=== PATIENT | male | born 1955 | race Caucasian/White ===

== ENCOUNTER 2018-11-23 12:48 | Emergency (ER) | payer MEDICARE ==
[~2018-11-23] VITALS: Ht 182.9 cm; Wt 100.2 kg
== END 2018-11-23 13:48 | disposition home or self-care (01) ==
LOC: ER 12:48
DX: S92.351A Displaced fracture of fifth metatarsal bone, right foot, initial encounter for closed fracture (principal); W23.0XXA Caught, crushed, jammed, or pinched between moving objects, initial encounter
CPT/HCPCS: 73630; 99283-25

== ENCOUNTER → 2024-06-18 | Outpatient (CLI) | payer MEDICARE ==
[2024-06-18 16:18] LABS: BASOPHILS ABSOLUTE AUTO 0.07 K/mm3 (0.00-0.23); BASOPHILS PERCENT AUTO 1 % (0-2); EOSINOPHILS ABSOLUTE AUTO 0.47 K/mm3 (0.00-0.68); EOSINOPHILS PERCENT AUTO 6 % (0-6); Hematocrit 38.9 % (37.0-53.0); Hemoglobin 13.6 g/dL (13.5-17.5); IMMATURE GRAN ABSOLUTE AUTO 0.01 K/mm3 (0.00-0.10); IMMATURE GRAN PERCENT AUTO 0 % (0-1); LYMPHOCYTES ABSOLUTE AUTO 1.73 K/mm3 (0.84-5.20); LYMPHOCYTES PERCENT AUTO 22 % (21-46); MONOCYTES ABSOLUTE AUTO 0.94 K/mm3 (0.16-1.47); MONOCYTES PERCENT AUTO 12 % (4-13); Mean Corpuscular HGB 33.7 pg (26.0-34.0); Mean Corpuscular Volume 96 fL (80-100); Mean Platelet Volume 10.2 fL (9.1-12.4); NEUTROPHILS ABSOLUTE AUTO 4.66 K/mm3 (1.96-9.15); NEUTROPHILS PERCENT AUTO 59 % (41-73); Platelet Count 335 K/mm3 (150-400); RDW Coefficient Variation 14.1 % (11.7-14.2); RDW Standard Deviation 49.2 fL (35.1-46.3); Red Blood Cell Count 4.04 M/mm3 (4.30-5.90); White Blood Cell Count 7.88 K/mm3 (4.00-11.30)
[2024-06-18 20:23] LABS: Chloride, Blood 110 mmol/L (98-108); Potassium, Blood 4.3 mmol/L (3.5-5.5); Sodium, Blood 140 mmol/L (136-145)
[2024-06-18 20:38] LABS: Anion Gap 8 mmol/L (3-11)
[2024-06-18 20:53] LABS: Alanine Aminotransfer (ALT/SGP 23 U/L (12-78); Albumin, Blood 3.8 g/dL (3.4-5.0); Albumin/Globulin Ratio 1.1 (0.8-1.8); Alk Phos 76 U/L (50-136); Aspartate Aminotrans (AST/SGOT 19 U/L (12-37); Bilirubin, Total 0.5 mg/dL (0.1-1.0); Blood Urea Nitrogen 12 mg/dL (8-24); Bun/Creatinine Ratio 15.6 (12.0-20.0); CO2, Blood 26 mmol/L (21-32); Calcium, Blood 9.4 mg/dL (8.5-10.1); Cholesterol 214 mg/dL (50-200); Creatinine, Blood 0.77 mg/dL (0.60-1.20); Globulin, Blood 3.5 g/dL (2.2-4.0); Glomerular Filtration Rate 96 (60-); Glucose, Blood 105 mg/dL (70-99); HDL Cholesterol 72 mg/dL (>39); LDL/HDL RATIO 1.7; Low Density Lipoprotein Chol 122 mg/dL (0-110); Total Protein, Blood 7.3 g/dL (6.4-8.2); Triglycerides 102 mg/dL (30-160); Very Low Density Lipoprot Chol 20 mg/dL (6-32)
== END ==
LOC: LAB 15:36 → LAB SHORT 15:36
PROVIDERS: Family Medicine
DX: I10 Essential (primary) hypertension (principal); E78.2 Mixed hyperlipidemia
CPT/HCPCS: 80053; 80061; 85025

== ENCOUNTER 2025-03-20 13:02 | Observation (INO) | payer MEDICARE ==
[~2025-03-20] VITALS: Ht 180.3 cm; Wt 86.4 kg
[2025-03-20] MEDS ORDERED: NS 500 ML IV SCH (13:45)
[2025-03-20] MEDS ORDERED: Ketorolac Tromethamine 30mg Vial IV ONE (14:35)
[2025-03-20] MEDS ORDERED: Lidocaine 2% Viscous Soln 15 ML UDC PO ONE (14:35)
[2025-03-20 15:01] LABS: Influenza A, PCR NEGATIVE (NEGATIVE); Influenza B, PCR NEGATIVE (NEGATIVE); Resp Syncytial Virus, PCR NEGATIVE (NEGATIVE); SARS-Cov-2 (COVID-19) PCR, MMC NEGATIVE (NEGATIVE)
[2025-03-20 17:03] LABS: BASOPHILS ABSOLUTE AUTO 0.08 K/mm3 (0.00-0.23); BASOPHILS PERCENT AUTO 1 % (0-2); EOSINOPHILS ABSOLUTE AUTO 0.07 K/mm3 (0.00-0.68); EOSINOPHILS PERCENT AUTO 1 % (0-6); Hematocrit 33.1 % (37.0-53.0); Hemoglobin 11.7 g/dL (13.5-17.5); IMMATURE GRAN ABSOLUTE AUTO 0.07 K/mm3 (0.00-0.10); IMMATURE GRAN PERCENT AUTO 1 % (0-1); LYMPHOCYTES ABSOLUTE AUTO 1.52 K/mm3 (0.84-5.20); LYMPHOCYTES PERCENT AUTO 13 % (21-46); MONOCYTES ABSOLUTE AUTO 1.72 K/mm3 (0.16-1.47); MONOCYTES PERCENT AUTO 15 % (4-13); Mean Corpuscular HGB Conc 35.3 g/dL (31.5-36.5); Mean Corpuscular Volume 93 fL (80-100); NEUTROPHILS ABSOLUTE AUTO 7.98 K/mm3 (1.96-9.15); NEUTROPHILS PERCENT AUTO 70 % (41-73); NRBC ABSOLUTE 0.00 K/mm3 (0.00-0.02); NRBC Auto 0.0 /100 WBC (0.0-0.2); Platelet Count 346 K/mm3 (150-400); RDW Coefficient Variation 12.9 % (11.7-14.2); RDW Standard Deviation 43.8 fL (35.1-46.3)
[2025-03-20] MEDS ORDERED: Ondansetron HCl 2 MG / ML 2ML Vial IV PRN (18:05)
[2025-03-20] MEDS ORDERED: NS 1,000 ML IV SCH (19:00)
[2025-03-20 19:37] VITALS: BP 127/86
[2025-03-20] MEDS ORDERED: METTREX2.5 PO (19:54)
[2025-03-20] MEDS ORDERED: Tessalon200 MG PO (19:56)
[2025-03-20] MEDS ORDERED: TELM40 PO (19:58)
[2025-03-20] MEDS ORDERED: FOLI1 PO (19:59)
[2025-03-20] MEDS ORDERED: CELE200 PO (20:00)
[2025-03-20 23:34] VITALS: BP 154/90
--- NOTE | 2025-03-21 00:12 | NUR ---
PT VERY AGITATED AT THIS NURSE BECAUSE OF IV ALARM, EXPLAINED TO PT ON SEVERAL OCCASIONS WHY IT WAS ALARMING, AND HE STILL FEELS ITS MY FAULT EVEN THOUGH PT KEEPS BENDING HIS ARM, SPLINTED ARM WITH TOWEL.
[2025-03-21] MEDS ORDERED: Guaifenesin/Dextromethorphan Syrup 5 ML UDC PO PRN (02:05)
--- NOTE | 2025-03-21 04:27 | NUR ---
PT A&O X4, VS WNL WITH EXCEPTION OF INCREASED BP D/T MD HOLDING MED. PT WITH INCREASED PO INTAKE, AND UOP WNL. PT WITH HACKING COUGH WHICH MAKES HIM VOMIT AT TIMES, NEW ORDER FOR COUGH SYRUP. ADMITTED FROM ED WITH UNKNOWN REASON FOR SYNCOPY AND DYSPENIA. O2 AT 2L. USES CALL SYSTEM APPROPRIATELY. PLAN FOR ECHO AND PULMONARY CONSULT TODAY.
[2025-03-21 05:35] LABS: BASOPHILS ABSOLUTE AUTO 0.07 K/mm3 (0.00-0.23); BASOPHILS PERCENT AUTO 1 % (0-2); EOSINOPHILS ABSOLUTE AUTO 0.26 K/mm3 (0.00-0.68); EOSINOPHILS PERCENT AUTO 2 % (0-6); Hematocrit 34.7 % (37.0-53.0); Hemoglobin 12.4 g/dL (13.5-17.5); IMMATURE GRAN ABSOLUTE AUTO 0.05 K/mm3 (0.00-0.10); IMMATURE GRAN PERCENT AUTO 0 % (0-1); LYMPHOCYTES ABSOLUTE AUTO 1.13 K/mm3 (0.84-5.20); LYMPHOCYTES PERCENT AUTO 10 % (21-46); MONOCYTES ABSOLUTE AUTO 1.51 K/mm3 (0.16-1.47); MONOCYTES PERCENT AUTO 13 % (4-13); Mean Corpuscular HGB Conc 35.7 g/dL (31.5-36.5); Mean Corpuscular Volume 92 fL (80-100); NEUTROPHILS ABSOLUTE AUTO 8.22 K/mm3 (1.96-9.15); NEUTROPHILS PERCENT AUTO 73 % (41-73); NRBC ABSOLUTE 0.00 K/mm3 (0.00-0.02); NRBC Auto 0.0 /100 WBC (0.0-0.2); Platelet Count 307 K/mm3 (150-400); RDW Coefficient Variation 12.9 % (11.7-14.2); RDW Standard Deviation 42.5 fL (35.1-46.3)
[2025-03-21 07:33] VITALS: BP 141/96
[2025-03-21] MEDS ORDERED: Enoxaparin 40 MG/0.4 ML SYR SC SCH (09:00)
[2025-03-21 11:45] VITALS: BP 138/90
[2025-03-21 15:37] LABS: Campylobacter Sp Not Detected (NOT DETECT); E. Coli O157 Not Detected (NOT DETECT); Enteroaggregative E. coli-EAEC Not Detected (NOT DETECT); Enteropathogenic E. coli-EPEC Not Detected (NOT DETECT); Enterotoxigenic E. coli-ETEC Not Detected (NOT DETECT); Salmonella Sp Not Detected (NOT DETECT); Shiga Toxin-prod E. coli-STEC Not Detected (NOT DETECT); Shigella/Enteroin E. coli-EIEC Not Detected (NOT DETECT); Vibrio Sp Not Detected (NOT DETECT)
[2025-03-21 16:07] VITALS: BP 148/86
--- NOTE | 2025-03-21 17:12 | NUR ---
SHIFT SUMMARY PT AOX4, INDEPENDENT IN THE ROOM. REMAINS ON NC, DESATS WITH AMBULATION. CALLS AND MAKES HIS NEEDS KNOWN. SOME DIARRHEA TODAY, GI PANEL SENT, SEE CHART FOR RESULTS. PT REPOSITIONS SELF IN BED, NO EVENTS PER TELE. SLEEP MED ORDERED PER THE EMAR AT PT'S REQUEST. PLAN IS FOR THE PT TO DC TOMORROW WITH A CLARA PATCH. CALL LIGHT WITHIN REACH, BED LOCKED AND IN THE LOWEST POSITION. WILL REPORT TO ONCOMING NURSE.
[2025-03-21 19:29] VITALS: BP 157/100
--- NOTE | 2025-03-21 19:52 | NUR ---
PT WITH MANY CONCERNS ABOUT WHAT IS IN REPORTS THAT ARE DICTATED AND IN CHART, FOR EXAMPLE CXR DONE ON 03/18 STATES HE WAS ON AMIODORONE AND IN FACT HE IS AND NEVER HAS BEEN ON AMIODORONE. PT ALSO CONCERNED ABOUT BEING FINE AND THEN WITHIN 3 DAYS WAS ILL WITH SIGNIFICANT COUGH, AND WEAKNESS. PT ALSO CONCERNED WITH NIGHT TIME SLEEP PATTERN AND INTENSES COUGHING. THIS NURSE CONVEYED THIS TO MD AND WAS DECIDED THAT WE WOULD TRY ATIVAN FOR COUGH, AND PT REQUESTED TYLENOL PM, WHICH HOSPITAL DOES NOT PROVIDED BUT BENEDRYL WAS ORDERED. WILL CONTINUE TO CONVEY PLAN TO PT, AND ENCOURAGED HIM TO REQUEST DETAILED INFORMATION FROM MD ON ROUNDS TOMORROW.
[2025-03-21 23:59] VITALS: BP 137/84
--- NOTE | 2025-03-22 05:15 | NUR ---
PT A&O X4, VS WNL, UOP WNL, PO INTAKE GOOD. TELE NSR. USES CALL SYSTEM INDEPENTLY. O2 INCREASED TO 3L D/T DECREASED SATS TO 85%. PT WITH CRACKLES IN LL'S. SLEPT BETWEEN MEDICATION. PT MEDICATED WITH ATIVAN FOR COUGH AND THIS WAS VERY HELPFUL, PT STATES HE FEELS BETTER THIS AM. UNSURE WHAT PLAN IS FOR TODAY.
[2025-03-22 05:19] VITALS: BP 109/50
[2025-03-22 05:40] LABS: BASOPHILS ABSOLUTE AUTO 0.10 K/mm3 (0.00-0.23); BASOPHILS PERCENT AUTO 1 % (0-2); EOSINOPHILS ABSOLUTE AUTO 0.28 K/mm3 (0.00-0.68); EOSINOPHILS PERCENT AUTO 2 % (0-6); Hematocrit 34.3 % (37.0-53.0); Hemoglobin 12.0 g/dL (13.5-17.5); IMMATURE GRAN ABSOLUTE AUTO 0.07 K/mm3 (0.00-0.10); IMMATURE GRAN PERCENT AUTO 1 % (0-1); LYMPHOCYTES ABSOLUTE AUTO 2.07 K/mm3 (0.84-5.20); LYMPHOCYTES PERCENT AUTO 18 % (21-46); MONOCYTES ABSOLUTE AUTO 1.89 K/mm3 (0.16-1.47); MONOCYTES PERCENT AUTO 16 % (4-13); Mean Corpuscular HGB Conc 35.0 g/dL (31.5-36.5); Mean Corpuscular Volume 95 fL (80-100); NEUTROPHILS ABSOLUTE AUTO 7.23 K/mm3 (1.96-9.15); NEUTROPHILS PERCENT AUTO 62 % (41-73); NRBC ABSOLUTE 0.00 K/mm3 (0.00-0.02); NRBC Auto 0.0 /100 WBC (0.0-0.2); Platelet Count 339 K/mm3 (150-400); RDW Coefficient Variation 12.9 % (11.7-14.2); RDW Standard Deviation 44.2 fL (35.1-46.3)
[2025-03-22 06:12] LABS: Anion Gap 9.0 mmol/L (3-11); Blood Urea Nitrogen 10.0 mg/dL (8-24); CO2, Blood 26.0 mmol/L (21-32); Calcium, Blood 8.5 mg/dL (8.5-10.1); Chloride, Blood 99.0 mmol/L (98-108); Creatinine, Blood 0.77 mg/dL (0.60-1.20); Glucose, Blood 103.0 mg/dL (70-99); Potassium, Blood 3.4 mmol/L (3.5-5.5); Sodium, Blood 131.0 mmol/L (136-145)
[2025-03-22 07:18] VITALS: BP 116/84
[2025-03-22 11:07] VITALS: BP 127/81
[2025-03-22] MEDS ORDERED: Ativan1 MG PO (13:51)
--- NOTE | 2025-03-22 14:20 | NUR ---
DISCHARGE NOTE- CALLED FOR HARD COPY SCRIPT FOR PO ATIVAN. IV AND TELE DC'D PRIOR TO DISCHARGE. HOME O2 EVAL COMPLETED PRIOR TO DC. PORTABLE O2 TANK PROVIDED BY [facility]. CALLED DR TO CLARIFY THE NEED FOR ZIO PATCH ORDER. CALLED [facility] AND THEY CAME AND PLACED ZIO PATCH. PT ESCORTED OUT VIA WC BY THE TONGUE STITCHER. NO S&S OF DISTRESS NOTED AT THE TIME OF DISCHARGE.
== END 2025-03-22 14:33 | disposition home or self-care (01) ==
LOC: ER 13:02 → MEDS 13:03 → ENPENDDIS 03-22 11:55 → MEDS 03-22 14:33
PROVIDERS: Nurse Practitioner Acute Care; Student in an Organized Health Care Education/Training Program; ADMIT Student in an Organized Health Care Education/Training Program
DX: J96.21 Acute and chronic respiratory failure with hypoxia (principal); R55 Syncope and collapse; J84.9 Interstitial pulmonary disease, unspecified; I36.1 Nonrheumatic tricuspid (valve) insufficiency; E87.1 Hypo-osmolality and hyponatremia; I10 Essential (primary) hypertension; M06.9 Rheumatoid arthritis, unspecified; D64.9 Anemia, unspecified; R19.7 Diarrhea, unspecified; Z88.0 Allergy status to penicillin; Z79.899 Other long term (current) drug therapy
CPT/HCPCS: 36415; 71260; 80048; 83735; 84145; 84484; 85025; 85651; 86140; 87507; 87637; 93005; 93010; 93246; 93306; 94761; 94762; 96372; 96374; 99285-25; A9270; G0378; J1650; J1885; J7030; Q9967

== ENCOUNTER → 2025-06-19 | Outpatient (CLI) | payer MEDICARE ==
[~2025-06-19] MED LIST: Ativan1 MG PO; CELE200 PO; DOXY100 PO; FOLI1 PO; METTREX2.5 PO; PRED20 PO; Prednisone20 MG PO; TELM40 PO; Tessalon200 MG PO
[2025-06-19 18:57] LABS: BASOPHILS ABSOLUTE AUTO 0.12 K/mm3 (0.00-0.23); BASOPHILS PERCENT AUTO 1 % (0-2); EOSINOPHILS ABSOLUTE AUTO 0.18 K/mm3 (0.00-0.68); EOSINOPHILS PERCENT AUTO 1 % (0-6); Hematocrit 40.9 % (37.0-53.0); Hemoglobin 13.3 g/dL (13.5-17.5); IMMATURE GRAN ABSOLUTE AUTO 0.07 K/mm3 (0.00-0.10); IMMATURE GRAN PERCENT AUTO 1 % (0-1); LYMPHOCYTES ABSOLUTE AUTO 0.75 K/mm3 (0.84-5.20); LYMPHOCYTES PERCENT AUTO 5 % (21-46); MONOCYTES ABSOLUTE AUTO 0.66 K/mm3 (0.16-1.47); MONOCYTES PERCENT AUTO 5 % (4-13); Mean Corpuscular HGB Conc 32.5 g/dL (31.5-36.5); Mean Corpuscular Volume 93 fL (80-100); NEUTROPHILS ABSOLUTE AUTO 12.70 K/mm3 (1.96-9.15); NEUTROPHILS PERCENT AUTO 88 % (41-73); NRBC ABSOLUTE 0.00 K/mm3 (0.00-0.02); NRBC Auto 0.0 /100 WBC (0.0-0.2); Platelet Count 394 K/mm3 (150-400); RDW Coefficient Variation 14.6 % (11.7-14.2); RDW Standard Deviation 49.7 fL (35.1-46.3)
[2025-06-19 20:09] LABS: Alanine Aminotransfer (ALT/SGP 34 U/L (12-78); Albumin, Blood 3.7 g/dL (3.4-5.0); Albumin/Globulin Ratio 0.9 (0.8-1.8); Anion Gap 9 mmol/L (3-11); Aspartate Aminotrans (AST/SGOT 27 U/L (12-37); Bilirubin, Total 0.5 mg/dL (0.1-1.0); Blood Urea Nitrogen 16 mg/dL (8-24); CHOL/HDL RATIO 3.0; CO2, Blood 27 mmol/L (21-32); Calcium, Blood 9.2 mg/dL (8.5-10.1); Chloride, Blood 105 mmol/L (98-108); Cholesterol 218 mg/dL (50-200); Creatinine, Blood 0.83 mg/dL (0.60-1.20); Globulin, Blood 4.3 g/dL (2.2-4.0); Glucose, Blood 133 mg/dL (70-99); HDL Cholesterol 72 mg/dL (>39); LDL/HDL RATIO 1.7; Low Density Lipoprotein Chol 124 mg/dL (0-110); Potassium, Blood 3.9 mmol/L (3.5-5.5); Sodium, Blood 137 mmol/L (136-145); Total Protein, Blood 8.0 g/dL (6.4-8.2); Triglycerides 112 mg/dL (30-160); Very Low Density Lipoprot Chol 22 mg/dL (6-32)
== END ==
LOC: LAB 17:33 → LAB SHORT 17:33
PROVIDERS: Family Medicine
DX: E78.2 Mixed hyperlipidemia (principal)
CPT/HCPCS: 80053; 80061; 85025